=== PATIENT | male | born 1995 | race Hispanic/Latino ===

== ENCOUNTER 2024-09-22 00:32 | Emergency (ER) | payer SELFPAY ==
[~2024-09-22] VITALS: Ht 170.2 cm; Wt 115.7 kg
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
[2024-09-22 00:59] LABS: ALBUMIN 4.2 g/dL (3.5-5.0); BILIRUBIN,TOTAL 0.5 mg/dL (0.2-1.0); CREATININE 1.2 mg/dL (0.5-1.3); TOTAL PROTEIN, SERUM 8.1 g/dL (6.0-8.3)
[2024-09-22 01:19] LABS: POTASSIUM 2.9 mmol/L (3.5-5.1)
[2024-09-22 01:25] VITALS: BP 105/53; PULSE 79; RESP 15; TEMP 98; O2SAT 96
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
--- NOTE | 2024-09-22 04:38 | HMCIMG ---
CT CERVICAL SPINE W/O CONTRAST HISTORY: No additional history given. COMPARISON: None TECHNIQUE: Multiple sequential axial images of the cervical spine were obtained including post processing sagittal and coronal reconstruction images. Patient was not given contrast through intravenous route. FINDINGS: There is straightening of normal lordotic cervical curvature which may be related to muscle spasm or positioning. There is no loss of vertebral height. Evaluation for disc and cord pathology is limited with CT study. No evidence of fracture or dislocation is seen. IMPRESSION: 1. No fracture is seen. CT was performed with one or more following dose reduction techniques: automated exposure control, adjustment of the mA and kv according to patient's size, or use of a iterative reconstruction technique.
== END 2024-09-22 01:28 | disposition left against medical advice (07) ==
LOC: EDH 00:32
DX: S01.81XA Laceration without foreign body of other part of head, initial encounter (principal); W25.XXXA Contact with sharp glass, initial encounter; Y93.89 Activity, other specified; Y92.89 Other specified places as the place of occurrence of the external cause; Y99.8 Other external cause status
CPT/HCPCS: 36415; 70450; 72125; 80053; 99284